=== PATIENT | male | born 2000 ===

== ENCOUNTER 2019-06-08 19:28 | Emergency (ER) | payer SELFPAY ==
--- NOTE | 2019-06-08 20:36 | XRay Report ---
Left hand, 3 views INDICATION: Pain following injury today FINDINGS: There are comminuted, mildly distracted fractures through the andre of the index and ring f ingers. The remaining bones of the hand are intact. Signer Name: Dalton Conte MD Signed: 06/08/2019 8:32 PM Workstation Name: [id number]
[2019-06-08] MEDS ORDERED: TORADOL IM STA (21:38)
--- NOTE | 2019-06-08 23:06 | Emergency Department Report ---
Upper Extremity - HPI Chief Complaint: Extremity Injury, Upper Stated Complaint: LEFT FINGER INJURY/WORK RELATED Time Seen by Provider: 06/08/19 21:27 Upper Extremity: Left Middle Finger, Left Ring Finger Occurred When: Today Mechanism: Crush (between not dryer while he was at work) Severity: mild Symptoms: Yes Pain with Movement, Yes Swelling, Yes Bruising/Ecchymosis, No Laceration or Abrasion ED Review of Systems ROS: Stated complaint: LEFT FINGER INJURY/WORK RELATED Other details as noted in HPI Comment: All other systems reviewed and negative ED Past Medical Hx - Past Medical History Previous Medical History?: No - Surgical History Past Surgical History?: No - Social History Smoking Status: Never Smoker Substance Use Type: None - Medications Home Medications: Home Medications Medication Instructions Recorded Confirmed Last Taken Type Ketorolac [Toradol] 10 mg PO Q6H PRN #14 tablet 06/08/19 Unknown Rx Upper Extremity Exam - Exam General: Vital signs noted. No distress. Alert and acting appropriately. Head and Torso: No HEENT Abnormality, No Neck Tenderness, No Chest/Lungs Abnormality, No Abdominal Tenderness, No Back Tenderness Shoulder Exam: Yes Normal Range of Motion in Shoulder, No Shoulder Tenderness, No Clavicle Tenderness, No Shoulder Deformity, No AC Joint Tenderness Arm Exam: No Arm/Humerus Tenderness, No Arm Deformity Elbow: No Elbow Tenderness, No Normal Range of Motion in Elbow, No Elbow Deformity Forearm: No Forearm Tenderness, No Forearm Deformity, No Pain with Pronation, No Pain with Supination Wrist: Yes Normal ROM in Wrist, No Wrist Tenderness, No Wrist Deformity, No Snuffbox Tenderness, No Pain with Axial Thumb Compression Hand: Yes Normal ROM in Digit(s), No Hand Tenderness, No Hand Deformity, No Digit Tenderness, No Digit(s) Deformity, No Tendon Dysfunction CMS Exam: No Broken Skin, No Normal Distal Pulses, No Normal Capillary Refill, No Normal Distal Sensation Hand L/R Front: 1 - Swelling to this region with some some ecchymosis noted. No broken skin. Hand L/R Back: 1 - Superficial abrasion to this region 2 - Crush site. Capillary refill is brisk. Pain with palpation. ED Course Vital Signs 06/08/19 06/08/19 19:32 22:32 Temperature 98.0 F Pulse Rate 71 Respiratory 18 16 Rate Blood Pressure 151/104 O2 Sat by Pulse 98 Oximetry ED Medical Decision Making - Radiology Data Radiology results: report reviewed (comminuted fracture to the andre of each finger) - Medical Decision Making 18-year-old male status post crush and dry resulting in a comminuted closed fracture, bilaterally symmetric. Fingers and advised on icing. He is therapeutically placed on work restriction to until he is cleared by orthopedic full participation at work Critical care attestation.: If time is entered above; I have spent that time in minutes in the direct care of this critically ill patient, excluding procedure time. ED Disposition Clinical Impression: Fracture, finger, distal phalanx Disposition: - TO HOME OR SELFCARE Is pt being admited?: No Does the pt Need Aspirin: No Condition: Stable Instructions: Finger Fracture (ED) Prescriptions: Ketorolac [Toradol] 10 mg PO Q6H PRN #14 tablet PRN Reason: Pain Referrals: DEL JOHNTABERG MD MARCIO [Primary Care Provider] - 3-5 Days LAURIE TRINH MD [Staff Physician] - 3-5 Days
[2019-06-08 23:45] VITALS: BP 149/79
== END 2019-06-08 23:45 | disposition home or self-care (01) ==
LOC: ED 19:28
DX: S62.633A Displaced fracture of distal phalanx of left middle finger, initial encounter for closed fracture (principal); S62.635A Displaced fracture of distal phalanx of left ring finger, initial encounter for closed fracture; Z79.899 Other long term (current) drug therapy; W23.0XXA Caught, crushed, jammed, or pinched between moving objects, initial encounter; Y93.89 Activity, other specified; Y92.89 Other specified places as the place of occurrence of the external cause; Y99.0 Civilian activity done for income or pay
CPT/HCPCS: 73130; 96372; 99283; J1885